=== PATIENT | female | born 1955 | race Caucasian/White ===

== ENCOUNTER 2018-02-06 23:46 | Inpatient (IN) | payer OTHER ==
[2018-02-07 00:09] LABS: URINE PH (Dip) POC 6.5 (5.0-8.5)
[2018-02-07 00:09] LABS: URINE BLOOD (Dip) POC Negative (NEGATIVE); URINE KETONES (Dip) POC Trace (NEGATIVE); URINE LEUKOCYTE EST (Dip) POC Negative (NEGATIVE); URINE NITRITE (Dip) POC Negative (NEGATIVE); URINE TOTAL PROTEIN POC 2+ (NEGATIVE)
[2018-02-07] MEDS: ONDANSETRON 4 MG INJ IV ×2 (00:18→02:29)
[2018-02-07] MEDS: SOD CHLORIDE 0.9% 500 ML IV (00:19)
[2018-02-07] MEDS: morphine 4 MG/ML VIAL IV ×2 (00:19→02:29)
[2018-02-07 00:21] LABS: ADD MAN DIFF? NO
[2018-02-07 00:24] LABS: WHITE BLOOD COUNT 8.4 10^3/ul (4.8-10.8)
[2018-02-07 00:24] LABS: BASOPHILS % 0.2 % (0.0-2.0); EOSINOPHILS # 0.1 10^3/ul (0.0-0.5); EOSINOPHILS % 0.7 % (0.0-7.0); HEMOGLOBIN 12.3 g/dl (12.0-16.0); LYMPHOCYTES # 1.1 10^3/ul (0.8-2.9); LYMPHOCYTES % 13.6 % (15.0-51.0); MEAN CORPUSCULAR HEMOGLOBIN 21.7 pg (29.0-33.0); MEAN CORPUSCULAR HGB CONC 30.8 g/dl (32.0-37.0); MEAN CORPUSCULAR VOLUME 70.7 fl (82.0-101.0); MEAN PLATELET VOLUME 11.2 fl (7.4-10.4); MONOCYTE # 0.3 10^3/ul (0.3-0.9); NEUTROPHIL # 6.9 10^3/ul (1.6-7.5); NEUTROPHILS % 82.3 % (39.0-77.0); PLATELET COUNT 269 10^3/UL (140-415); RED BLOOD COUNT 5.66 10^6/ul (4.20-5.40); RED CELL DISTRIBUTION WIDTH 17.2 % (11.5-14.5)
[2018-02-07 01:32] LABS: ALANINE AMINOTRANSFERASE 470 IU/L (13-69); ALBUMIN 4.2 g/dl (3.3-4.9); ALBUMIN/GLOBULIN RATIO 1.27; ALKALINE PHOSPHATASE 151 IU/L (42-121); ANION GAP 14 (8-16); ASPARTATE AMINO TRANSFERASE 520 IU/L (15-46); BILIRUBIN,INDIRECT 0.6 mg/dl (0-1.1); BILIRUBIN,TOTAL 0.6 mg/dl (0.2-1.3); BLOOD UREA NITROGEN 18 mg/dl (7-20); CALCIUM 9.3 mg/dl (8.4-10.2); CARBON DIOXIDE 26 mmol/L (21-31); CHLORIDE 108 mmol/L (97-110); CREATININE 0.89 mg/dl (0.44-1.00); GLUCOSE 171 mg/dl (70-220); LIPASE 1087 U/L (23-300); POTASSIUM 4.5 mmol/L (3.5-5.1); SODIUM 143 mmol/L (135-144); TOTAL PROTEIN 7.5 g/dl (6.1-8.1)
[2018-02-07] MEDS ORDERED: DEXTROSE 5%-0.45% NACL 1,000 ML IV (03:28)
[2018-02-07] MEDS ORDERED: ACETAMINOPHEN 325 MG TAB PO (03:30)
[2018-02-07] MEDS ORDERED: NACL 0.9% 3 ML SYG IV (03:30)
[2018-02-07] MEDS ORDERED: HYDROCODONE/APAP (5/325) TAB PO (03:30)
[2018-02-07] MEDS ORDERED: ONDANSETRON 4 MG INJ IV (03:30)
[2018-02-07] MEDS: SOD CHLORIDE 0.9% 1,000 ML IV ×3 (04:38→15:35)
[2018-02-07 04:55] LABS: HAAIG REFLEX REFLEX FILED
[2018-02-07 05:04] LABS: INR 0.91; PROTIME 12.3 Sec (11.9-14.9)
[2018-02-07] MEDS: hydrALAzine 20 MG INJ IV ×2 (05:32→18:07)
[2018-02-07] MEDS: PANTOPRAZOLE 40 MG INJ IV (05:33)
[2018-02-07 05:41] LABS: HEPATITIS B SURFACE ANTIGEN NEGATIVE (NEGATIVE)
[2018-02-07 05:59] LABS: HEPATITIS B CORE ANTIBODY REACTIVE (NEGATIVE); HEPATITIS C VIRAL ANTIBODY NEGATIVE (NEGATIVE)
[2018-02-07] MEDS: morphine 2 MG INJ IV ×4 (07:00→20:07)
[2018-02-07] MEDS: AMIODARONE 200 MG TAB PO ×2 (08:31→20:06)
[2018-02-07] MEDS: LORATADINE 10 MG TAB PO (08:31)
[2018-02-07] MEDS: ASPIRIN (EC) 81 MG TAB PO (08:31)
[2018-02-07] MEDS: LISINOPRIL 5 MG TAB PO ×2 (08:31→20:05)
[2018-02-07 09:22] LABS: ADD UMIC YES; UR ASCORBIC ACID 40 mg/dL (NEGATIVE); UR BACTERIA FEW /HPF (NONE SEEN); UR BILIRUBIN (Dip) NEGATIVE (NEGATIVE); UR BLOOD (Dip) NEGATIVE (NEGATIVE); UR CLARITY SLIGHTLY CLOUDY (CLEAR); UR COLOR YELLOW (YELLOW); UR GLUCOSE (Dip) 2+ mg/dL (NEGATIVE); UR KETONES (Dip) TRACE mg/dL (NEGATIVE); UR LEUKOCYTE ESTERASE (Dip) NEGATIVE Leu/ul (NEGATIVE); UR NITRITE (Dip) NEGATIVE (NEGATIVE); UR RBC 3 /HPF (0-5); UR SPECIFIC GRAVITY (Dip) 1.029 (1.003-1.030); UR TOTAL PROTEIN (Dip) 1+ mg/dl (NEGATIVE); UR UROBILINOGEN (Dip) 2+ mg/dL (NEGATIVE); UR WBC 3 /HPF (0-5)
[2018-02-08] MEDS: morphine 2 MG INJ IV (01:32)
[2018-02-08] MEDS: SOD CHLORIDE 0.9% 1,000 ML IV ×4 (02:52→19:16)
[2018-02-08] MEDS: PANTOPRAZOLE 40 MG INJ IV (05:25)
[2018-02-08 07:22] LABS: HEPATITIS B SURFACE ANTIBODY POSITIVE (NEGATIVE)
[2018-02-08] MEDS: AMIODARONE 200 MG TAB PO ×2 (08:53→21:22)
[2018-02-08] MEDS: LORATADINE 10 MG TAB PO (08:53)
[2018-02-08] MEDS: LISINOPRIL 5 MG TAB PO ×2 (08:54→21:21)
[2018-02-08] MEDS: ASPIRIN (EC) 81 MG TAB PO (08:54)
[2018-02-08 10:24] LABS: ADD MAN DIFF? NO
[2018-02-08 10:35] LABS: WHITE BLOOD COUNT 10.1 10^3/ul (4.8-10.8)
[2018-02-08 10:35] LABS: BASOPHILS % 0.2 % (0.0-2.0); EOSINOPHILS % 0.2 % (0.0-7.0); HEMATOCRIT 33.4 % (37.0-47.0); HEMOGLOBIN 10.4 g/dl (12.0-16.0); LYMPHOCYTES # 1.1 10^3/ul (0.8-2.9); LYMPHOCYTES % 10.8 % (15.0-51.0); MEAN CORPUSCULAR HEMOGLOBIN 21.7 pg (29.0-33.0); MEAN CORPUSCULAR HGB CONC 31.1 g/dl (32.0-37.0); MEAN CORPUSCULAR VOLUME 69.7 fl (82.0-101.0); MONOCYTE # 0.8 10^3/ul (0.3-0.9); MONOCYTES % 8.1 % (0.0-11.0); NEUTROPHIL # 8.1 10^3/ul (1.6-7.5); NEUTROPHILS % 80.3 % (39.0-77.0); PLATELET COUNT 211 10^3/UL (140-415); RED BLOOD COUNT 4.79 10^6/ul (4.20-5.40); RED CELL DISTRIBUTION WIDTH 16.3 % (11.5-14.5)
[2018-02-08 11:07] LABS: ALANINE AMINOTRANSFERASE 271 IU/L (13-69); ALBUMIN 3.5 g/dl (3.3-4.9); ALBUMIN/GLOBULIN RATIO 1.06; ALKALINE PHOSPHATASE 125 IU/L (42-121); ANION GAP 11 (8-16); ASPARTATE AMINO TRANSFERASE 113 IU/L (15-46); BLOOD UREA NITROGEN 11 mg/dl (7-20); CARBON DIOXIDE 25 mmol/L (21-31); CHLORIDE 106 mmol/L (97-110); CREATININE 0.81 mg/dl (0.44-1.00); GLUCOSE 119 mg/dl (70-220); POTASSIUM 3.6 mmol/L (3.5-5.1); SODIUM 138 mmol/L (135-144); TOTAL PROTEIN 6.8 g/dl (6.1-8.1)
[2018-02-08] MEDS ORDERED: ACETAMINOPHEN 500 MG TAB PO (12:30)
[2018-02-09] MEDS: SOD CHLORIDE 0.9% 1,000 ML IV ×2 (01:30→15:50)
[2018-02-09] MEDS: PANTOPRAZOLE 40 MG INJ IV (06:20)
[2018-02-09] MEDS: morphine 2 MG INJ IV ×2 (06:21→10:47)
[2018-02-09] MEDS: LORATADINE 10 MG TAB PO (08:11)
[2018-02-09] MEDS: AMIODARONE 200 MG TAB PO ×2 (08:12→19:53)
[2018-02-09] MEDS: LISINOPRIL 5 MG TAB PO ×2 (08:12→19:53)
[2018-02-09 15:16] LABS: LIPASE 40 U/L (23-300)
[2018-02-09] MEDS: morphine LIQ (10 MG/5 ML) CUP PO (19:38)
== END 2018-02-09 20:35 | disposition short-term general hospital (02) | DRG 439 ==
LOC: E/R 23:46 → PP2 02-07 03:20
DX: K85.10 Biliary acute pancreatitis without necrosis or infection (principal); I50.32 Chronic diastolic (congestive) heart failure; K80.20 Calculus of gallbladder without cholecystitis without obstruction; I11.0 Hypertensive heart disease with heart failure
CPT/HCPCS: 36415; 71045; 74176; 74181; 76705; 80053; 81001; 81003; 83690; 85025; 85610; 85730; 86704; 86706; 86709; 86803; 87340; 93306; 96374; 96375; 96376; 99285-25